=== PATIENT | female | born 1945 | race Caucasian/White ===

== ENCOUNTER → 2019-09-07 10:46 | Outpatient (CLI) | payer MEDICARE, OTHER, SELFPAY ==
--- NOTE | 2019-09-07 | DI.US.S_ITS ---
PROCEDURE: US THYROID INDICATIONS: GOITER TECHNIQUE: Real-time scanning was performed of the thyroid gland, with image documentation. COMPARISON: None. FINDINGS: Right: Thyroid lobe measures 5.6 x 1.4 x 1.3 cm, and is homogeneous in echotexture. Left: Thyroid lobe measures 3.6 x 2.3 x 1.7 cm, and is homogenous in echotexture. Isthmus: 3 mm thick. Nodule number: 1 Location: Left mid Size: 1.1 x 1 x 1.2 cm. Composition: Solid Echogenicity: Hyperechoic Shape: Wider than tall Margins: Smooth Echogenic foci: None Total points: 3 ACR TI-RADS category: 3 Nodule number: 2 Location: Right inferior Size: 1 x 0.8 x 0.7 cm. Composition: Solid Echogenicity: Hypoechoic Shape: Wider than tall Margins: Lobulated Echogenic foci: Macrocalcifications Total points: 9 ACR TI-RADS category: 5 IMPRESSION: 1. Right inferior nodule measuring 1 cm with macrocalcifications. TI-RADS 5. FNA is recommended. 2. Asymmetrically enlarged right thyroid gland. ACR TI-RADS definitions and recommendations: TI-RADS 1 (benign): 0 points. FNA not needed. TI-RADS 2 (not suspicious): 2 points. FNA not needed. TI-RADS 3 (mildly suspicious): 3 points. * FNA if 2.5 cm or larger, follow up if 1.5 cm or larger (at 1, 3, and 5 years). TI-RADS 4 (moderately suspicious): 4-6 points. * FNA if 1.5 cm or larger, follow up if 1 cm or larger (at 1, 2, 3, and 5 years). TI-RADS 5 (highly suspicious): 7 points or more. * FNA if 1 cm or larger, follow up if 0.5 cm or larger (every year for 5 years). Dictated by: Amor Arzate M.D. on 09/07/2019 at 16:25 Approved by: Amor Arzate M.D. on 09/07/2019 at 16:33
== END ==
PROVIDERS: Family Provider Internal Medicine Endocrinology, Diabetes & Metabolism; Visit Provider Internal Medicine Endocrinology, Diabetes & Metabolism
DX: E04.2 Nontoxic multinodular goiter (principal)
CPT/HCPCS: 76536